=== PATIENT | male | born 1940 | race Caucasian/White ===

== ENCOUNTER 2017-01-28 08:40 | Day surgery (SDC) | payer MEDICARE, OTHER ==
[~2017-01-28 08:40] MED LIST: ALDACTONE25 M1 PO; ALLOPURINOL100 M1 PO; ASMANEX HFA13 GM INH; ASPIRIN EC81 MG PO; CARDIZEM CD360 M1 PO; COZAAR50 M1 PO; FOLIC ACID PO; SPIRIVA18 MC1 INH; VITAMIN D31000 UNI3 PO
[2017-01-28 10:28] LABS: ANION GAP 14 mmol/L (0-20); BLOOD UREA NITROGEN 18 mg/dl (6-24); CALCIUM 9.3 mg/dl (8.5-10.5); CARBON DIOXIDE-VENOUS 24 mmol/L (22-32); CHLORIDE 110 mmol/l (96-110); CREATININE 1.54 mg/dl (0.60-1.30); GLUCOSE 101 mg/dL (70-110); POTASSIUM 4.6 mmol/L (3.7-5.1); SODIUM 143 mmol/L (135-145); eGFR VALUE FOR BLACK 50 mL/Min
== END 2017-01-28 14:05 ==
LOC: SRG 08:40 → SHSB 08:41 → ORE 10:44 → PACU 11:48 → SHSB 12:35
PROVIDERS: Urology
PROC: 0TF4XZZ Fragmentation in Left Kidney Pelvis, External Approach (ICD-10-PCS; principal; 2017-01-28)
DX: N20.0 Calculus of kidney (principal); I10 Essential (primary) hypertension; I25.10 Atherosclerotic heart disease of native coronary artery without angina pectoris; M10.9 Gout, unspecified; J45.909 Unspecified asthma, uncomplicated; G47.30 Sleep apnea, unspecified; K21.9 Gastro-esophageal reflux disease without esophagitis; N40.0 Benign prostatic hyperplasia without lower urinary tract symptoms; Z79.82 Long term (current) use of aspirin; Z79.899 Other long term (current) drug therapy; Z88.0 Allergy status to penicillin; Z91.041 Radiographic dye allergy status; Z87.891 Personal history of nicotine dependence; Z90.49 Acquired absence of other specified parts of digestive tract
CPT/HCPCS: J0690